=== PATIENT | female | born 1960 | race Two or more races ===

== ENCOUNTER → 2024-08-25 | Outpatient (CLI) | payer MEDICAID, SELFPAY ==
--- NOTE | 2024-08-25 14:20 | XR_ITS ---
Examination: Bone densitometry Date and time of exam:August 25, 2024 1426 hours INDICATIONS: Menopause age 53 calcium 6 years, personal history osteoporosis Technique: Lumbar spine and hip total bone mineralization values of an calculated. Peak reference and age match control results have been displayed. Findings: Lumbar spine total bone mineralization is0.775 gm/cm2. This is 2.5 standard deviations below peak reference. This is 0.8 standard deviations below age-matched controls. Hip total bone mineralization is 0.847 gm/cm2 This is 0.9 standard deviations below peak reference. This is 0.2 standard deviations above age-matched controls Impression: There is osteoporosis based on lumbar spine measurements. There is osteopenia based on hip measurements Lumbar mineralization is increase 0.5% compared with September 17, 2021 Hip mineralization is increase 11.6% compared with September 17, 2021
== END | disposition home or self-care (01) ==
LOC: CDIM 13:54
PROVIDERS: PCP Registered Nurse; Referring Provider Registered Nurse; Visit Provider Registered Nurse
DX: M81.0 Age-related osteoporosis without current pathological fracture (principal); M85.89 Other specified disorders of bone density and structure, multiple sites
CPT/HCPCS: 77080